=== PATIENT | male | born 1990 | race Caucasian/White ===

== ENCOUNTER 2017-11-29 23:21 | Emergency (ER) | payer MEDICAID, OTHER ==
[~2017-11-29] VITALS: Ht 172.7 cm; Wt 80.7 kg
[2017-11-30 00:01] VITALS: BP 139/66
--- NOTE | 2017-11-30 00:25 | Emergency Room Report ---
History of Present Illness General Chief Complaint: Behavioral Complaint Source: Patient Present Illness HPI Is a 37-year-old male with no significant past medical history. He presents with chief complaint of dizziness and anxiety attack. He is from [place]. He said he visiting his friend here and [place]. When he got here his friend left for [employer]. He said he is unable to get in contact with his friends. He's been homeless for last couple days. He was walking he felt nervous and anxious. He was hyperventilating and felt dizzy. Denies suicidal thought homicidal thought. Said his felt better now. Just hungry. No nausea no vomiting. No fever chills but no suicidal thoughts or homicidal thought. Said his here for couple more days days ago back to [place]. Allergies: Coded Allergies: No Known Allergies (Unverified , 11/29/17) Patient History Past Medical History: see triage record, old chart reviewed Past Surgical History: none Pertinent Family History: none Social History: Denies: smoking Immunizations: other Reviewed Nursing Documentation: PMH: Agreed; PSxH: Agreed Nursing Documentation-PM Past Medical History: No History, Except For Review of Systems Eye: Denies: eye pain, blurred vision ENT: Denies: ear pain, nose congestion, throat swelling Respiratory: Denies: cough, shortness of breath Cardiovascular: Denies: chest pain, palpitations Gastrointestinal: Denies: abdominal pain, diarrhea, nausea, vomiting Musculoskeletal: Denies: back pain, joint pain Skin: Denies: rash Neurological: Reports: dizziness; Denies: headache, numbness Endocrine: Denies: increased thirst, increased urine Hematologic/Lymphatic: Denies: easy bruising All Other Systems: negative except mentioned in HPI Physical Exam Vital Signs Date Time Temp Pulse Resp B/P (MAP) Pulse Ox O2 Delivery O2 Flow Rate FiO2 11/29/17 23:38 98.5 82 16 107/66 94 98.4 vitals normal Sp02 EP Interpretation: reviewed, normal General Appearance: well appearing, no apparent distress, alert Head: normocephalic, atraumatic Eyes: bilateral eye PERRL, bilateral eye EOMI ENT: hearing grossly normal, normal pharynx Neck: full range of motion, supple, no meningismus Respiratory: chest non-tender, lungs clear, normal breath sounds Cardiovascular #1: regular rate, rhythm, no murmur Gastrointestinal: normal bowel sounds, non tender, no mass, no organomegaly, no bruit, non-distended Musculoskeletal: back normal, gait/station normal, normal range of motion Psychiatric: mood/affect normal Skin: warm/dry Medical Decision Making Diagnostic Impression: Primary Impression: Anxiety ER Course Patient with anxiety. He felt better now. Eating drinking here without a problem. No evidence of dehydration. No evidence of suicidal thoughts homicidal thought. No criteria for 5150. Last Vital Signs Date Time Temp Pulse Resp B/P (MAP) Pulse Ox O2 Delivery O2 Flow Rate FiO2 11/29/17 23:38 98.5 82 16 107/66 94 98.4 Status: improved Disposition: HOME, SELF-CARE Condition: Stable Referrals: NOT CHOSEN IPA/MD,REFERRING (PCP) Additional Instructions: Follow-up with your DrChikis in 7 days. Return if symptom worsen. RICHARD HERNANDEZ M.D. Nov 30, 2017 00:25
[2017-11-30 01:00] VITALS: BP 139/66
== END 2017-11-30 00:58 | disposition home or self-care (01) ==
LOC: EDBD → EMR 23:56
DX: F41.8 Other specified anxiety disorders (principal); R42 Dizziness and giddiness
CPT/HCPCS: 99282

== ENCOUNTER 2017-12-02 00:24 | Emergency (ER) | payer MEDICAID ==
[~2017-12-02] VITALS: Ht 172.7 cm; Wt 84.4 kg
[2017-12-02 00:45] VITALS: BP 102/70
--- NOTE | 2017-12-02 01:01 | Emergency Room Report ---
History of Present Illness General Chief Complaint: General Complaint Source: Patient Present Illness HPI Is a 27-year-old male with history of anxiety. He presents with chief complaint of not feeling well. He said the last 2 days he woke up feeling slow. Not thinking straight. Denies any fever chills but denies any nausea vomiting. He was here to have days ago. He was visiting from [place] but when he got here his friends went to [place]. He hasn't been able to contact his friend then. He is actually leaving for [place] later on today. He denies any focal deficit. No fever or chills. No nausea no vomiting. No chest pain. Allergies: Coded Allergies: No Known Allergies (Unverified , 11/29/17) Patient History Past Medical History: see triage record, old chart reviewed Past Surgical History: none Pertinent Family History: none Social History: Denies: smoking Immunizations: other Reviewed Nursing Documentation: PMH: Agreed; PSxH: Agreed Review of Systems Constitutional: Reports: malaise Eye: Denies: eye pain, blurred vision ENT: Denies: ear pain, nose congestion, throat swelling Respiratory: Denies: cough, shortness of breath Cardiovascular: Denies: chest pain, palpitations Gastrointestinal: Denies: abdominal pain, diarrhea, nausea, vomiting Musculoskeletal: Denies: back pain, joint pain Skin: Denies: rash Neurological: Denies: headache, numbness Endocrine: Denies: increased thirst, increased urine Hematologic/Lymphatic: Denies: easy bruising All Other Systems: negative except mentioned in HPI Physical Exam Vital Signs Date Time Temp Pulse Resp B/P (MAP) Pulse Ox O2 Delivery O2 Flow Rate FiO2 12/02/17 00:32 98.4 82 16 102/70 94 Room Air 98.4 vitals normal Sp02 EP Interpretation: reviewed, normal General Appearance: well appearing, no apparent distress, alert Head: normocephalic, atraumatic Eyes: bilateral eye PERRL, bilateral eye EOMI ENT: hearing grossly normal, normal pharynx Neck: full range of motion, supple, no meningismus Respiratory: chest non-tender, lungs clear, normal breath sounds Cardiovascular #1: regular rate, rhythm, no murmur Gastrointestinal: normal bowel sounds, non tender, no mass, no organomegaly, no bruit, non-distended Musculoskeletal: back normal, gait/station normal, normal range of motion Psychiatric: mood/affect normal Skin: warm/dry Medical Decision Making Diagnostic Impression: Primary Impression: Encounter for generalized patient complaints ER Course Patient presents with vague somatic complaint. No focal deficit to indicate TIA or CVA. He does not appear to be anxious. He has no evidence of any infection. I see no need for blood work or x-rays. We'll discharge home. Last Vital Signs Date Time Temp Pulse Resp B/P (MAP) Pulse Ox O2 Delivery O2 Flow Rate FiO2 12/02/17 00:32 98.4 82 16 102/70 94 Room Air 98.4 Status: unchanged Disposition: HOME, SELF-CARE Condition: Stable Referrals: NOT CHOSEN IPA/MD,REFERRING (PCP) Additional Instructions: Follow-up with your doctor in 7 days. Return if symptom worsen. RICHARD HERNANDEZ M.D. Dec 02, 2017 01:01
[2017-12-02 01:15] VITALS: BP 102/70
== END 2017-12-02 01:15 | disposition home or self-care (01) ==
LOC: EMR 00:48
DX: R46.4 Slowness and poor responsiveness (principal); F45.9 Somatoform disorder, unspecified
CPT/HCPCS: 99282